=== PATIENT | female | born 1975 | race Caucasian/White ===

== ENCOUNTER 2022-04-07 12:13 | Emergency (ER) | payer OTHER, SELFPAY ==
[2022-04-07 12:26] VITALS: BP 89/54; PULSE 90; RESP 18; TEMP 36.8; O2SAT 100
[2022-04-07 12:53] LABS: Bilirubin Negative (Negative); Blood Trace-intact (Negative); Clarity Clear (Clear); Glucose Negative (Negative); Ketones 15 mg/dL (Negative); Leukocyte Esterase Negative (Negative); Nitrite Negative (Negative); Specific Gravity >= 1.030 (1.005-1.025); Urobilinogen 0.2 EU/dL (Up TO 0.2)
[2022-04-07 12:59] LABS: Bacteria Negative HPF (Negative); C & S Indicated? No; Casts Negative LPF (Negative); Crystals Negative HPF (Negative); Epithelial Cells Few HPF (Negative); Mucus Trace (Negative); RBC 0-2 HPF (0-2); WBC Negative HPF (0-5)
[2022-04-07] MEDS: Normal Saline 500 ML IV ×2 (13:14→14:15)
[2022-04-07] MEDS: HYDROmorphone 2 MG/ML VIAL 0.5 MG IVP ×2 (13:20→14:25)
[2022-04-07] MEDS: Ondansetron 4 MG/2 ML VIAL IVP (13:24)
[2022-04-07 13:35] LABS: Abs Immature Grans 0.07 10^3/uL (0.0-0.06); Absolute Basophil Count 0.04 10^3/uL (0.0-0.2); Absolute Eosinophil Count 0.15 10^3/uL (0.0-0.7); Absolute Lymphocyte Count 0.67 10^3/uL (1.2-3.4); Absolute Neutrophil Count 7.83 10^3/uL (1.2-6.7); Basophils % 0.4; Eosinophils % 1.6; HCT 38.9 % (36.0-46.0); HGB 12.8 g/dL (11.2-15.7); Immature Grans % 0.7; Lymphocytes % 7.1; MCH 30.5 pg (27.0-33.0); MCHC 32.9 % (32.0-36.0); MCV 93 fL (80-95); Monocytes % 7.4; Neutrophils % 82.8; RBC 4.19 10^6/uL (3.93-5.22); RDW 12.4 % (11.7-14.6); RDW-SD 42.5 fL; WBC 9.46 10^3/uL (4.4-10.8)
--- NOTE | 2022-04-07 13:41 | DI.CT_ITS ---
Exam(s) CT RENAL COLIC WO EXAM: CT RENAL COLIC WO CLINICAL HISTORY: flank pain with nephrostomy tube. TECHNIQUE: Imaging Protocol: Axial computed tomography images with coronal and sagittal reformatted images were created and reviewed. CONTRAST MATERIAL: Noncontrast COMPARISON: No exams were available for comparison FINDINGS: ABDOMEN: Lung Bases: Normal where visualized. Liver: Normal attenuation. No measurable mass. Gallbladder and biliary tract: No radiodense calculus or dilation. Pancreas: Normal density, no calcifications or inflammatory process. Spleen: Normal. Kidneys: There is a left-sided nephrostomy tube. There is moderate to severe left hydronephrosis. T here are 2 stones at the left ureteropelvic junction, the larger measuring 11 millimeters in length a nd the smaller measuring 5 millimeters. Multiple other smaller stones are noted throughout the left kidney. There is no perinephric collection. There are few tiny stones in the right kidney. There i s no right hydronephrosis. Adrenal glands: No masses seen. Abdominal Aorta: Abdominal portion non-dilated. Mild calcification. PELVIS: Bladder: Nearly empty. No gross wall thickening. No stones visible. Bowel: Large quantity of stool throughout the colon. No obstruction or bowel wall thickening. Peritoneal cavity: No ascites, collection or mesenteric inflammatory response. Bones: Within normal limits. IMPRESSION: Moderate to severe left hydronephrosis secondary to stones at the ureteropelvic junction. Left nephr ostomy tube is in place. Large quantity of fecal material. RADIATION DOSE DELIVERED: 719.55mGy.cm Total DLP DATA REPOSITORY: All CT scans at this facility are submitted to the National Radiology Data Registry (NRDR) Dose Index Registry (DIR) with the [employer] ([employer]). RADIATION OPTIMIZATION: All CT scans at this facility use at least one of these dose optimization te chniques: automated exposure control; mA and/or kV adjustment per patient size (includes targeted exa ms where dose is matched to clinical indication); or iterative reconstruction.
[2022-04-07 13:45] LABS: ALT 25 U/L (14-59); AST 18 U/L (15-37); Albumin 3.4 g/dL (3.4-5.0); Alkaline Phosphatase 87 U/L (46-116); BUN 20 mg/dL (7-18); Bilirubin, Total 0.3 mg/dL (0.2-1.0); CREATININE 1.3 mg/dL (0.55-1.02); Calcium 9.5 mg/dL (8.5-10.1); Chloride 105 mmol/L (98-107); Estimated GFR 43.72 (mL/min/1.73m2); Glucose 95 mg/dL (74-106); Potassium 3.9 mmol/L (3.5-5.1); Sodium 138 mmol/L (136-145); Total Protein 8.5 g/dL (6.4-8.2)
--- NOTE | 2022-04-07 14:12 | ED.GENADUL_ITS ---
Discharge Plan Disposition Patient Disposition: [facility] Condition: Stable Discharge Details Clinical Impression: Hydronephrosis, Nephrostomy status Primary Care Provider: [facility] Provider: Malena Pierce Home Meds and New Rx's Prescriptions: Continued venlafaxine 25 mg Tablet 25 mg PO DAILY topiramate 25 mg Tablet 25 mg PO DAILY levothyroxine 25 mcg Tablet 25 mcg PO DAILY cephalexin HCl 500 mg Tablet 500 mg PO DAILY ciprofloxacin HCl 250 mg Tablet 250 mg PO DAILY propranolol 10 mg Tablet 10 mg PO DAILY amoxicillin 250 mg Capsule 250 mg PO DAILY ondansetron 4 mg Tablet,Disintegrating 4 mg PO PRN PRN Discharge Data Discharge Date/Time-TO BE ENTERED AT DEPARTURE: 04/07/22 18:51 Medical Decision Making <Jerald Art NP - Last Filed: 04/08/22 13:54> Patient presenting to the emergency department for's severe left-sided flank pain. Patient reports that she has chronic history of left-sided kidney stone production and 3 months ago she ended up with a septic stone. She was admitted to [facility] with nephrostomy tube placement. At discharge she was placed on antibiotics but before her follow-up for definitive care of stone removal she became septic again and was readmitted to the hospital. She states that she was still on Cipro and amoxicillin but over the past 5 days has had worsening flank pain and for the past 2 days her nephrostomy tube has stopped draining. She does state that she was supposed to have follow-up on the but is refusing to return to [facility] due to significant concern over their care and feeling unsafe about procedure performed by them. Patient is extremely tender to the left flank and abdomen and is in significant amount of pain. Patient slightly hypotensive but vital signs otherwise stable patient is afebrile. We will plan to check labs and CT imaging pending results we will give fluid bolus and hydromorphone. Review of labs show no leukocytosis but slightly elevated neutrophils and decreased lymphocytes otherwise unremarkable CBC. CMP shows an anion gap of 13, BUN of 20, creatinine 1.3 with a GFR of 43. Total protein is 8.5 otherwise unremarkable CMP. Urinalysis shows high specific gravity, 15 urine ketones and trace blood otherwise negative for nitrates and leukocyte esterase with no WBCs and negative for bacteria. CT imaging shows moderate to severe left hydronephrosis with nephrostomy tube in place and several stones with obstruction noted in the left UVJ. Patient reassessed and continues to have discomfort. Will give additional fluid bolus and further narcotics along with 10 mg ketorolac to see if this helps better. Did contact [facility] and spoke with Dr. Lind with urology. He was able to develop plan of care for patient to have possible ED-ED transfer for nephrostomy tube replacement to help with patient's pain and to establish further definitive plan to treat her obstructing stones. Clear expectations were discussed with patient that majority of care would need to be taken care of on an outpatient basis and that she would need to follow-up as discussed by specialist. Patient is agreeable to this. Patient signed out to Malena ODELL pending confirmation of interventional radiology availability and report to be given to [facility] emergency department provider excepting patient. If interventional radiology is unavailable today plan to include admission of patient for pain control and monitoring with transfer to tertiary care center when IR is available for nephrostomy tube change. Imaging Data Radiologic Study: Attestation: I personally reviewed and interpreted this imaging study as follows: Imaging: CT Scan Radiologist's impression: FINDINGS: ABDOMEN: Lung Bases: Normal where visualized. Liver: Normal attenuation. No measurable mass. Gallbladder and biliary tract: No radiodense calculus or dilation. Pancreas: Normal density, no calcifications or inflammatory process. Spleen: Normal. Kidneys: There is a left-sided nephrostomy tube. There is moderate to severe left hydronephrosis. There are 2 stones at the left ureteropelvic junction, the larger measuring 11 millimeters in length and the smaller measuring 5 millimeters. Multiple other smaller stones are noted throughout the left kidney. There is no perinephric collection. There are few tiny stones in the right kidney. There is no right hydronephrosis. Adrenal glands: No masses seen. Abdominal Aorta: Abdominal portion non-dilated. Mild calcification. PELVIS: Bladder: Nearly empty. No gross wall thickening. No stones visible. Bowel: Large quantity of stool throughout the colon. No obstruction or bowel wall thickening. Peritoneal cavity: No ascites, collection or mesenteric inflammatory response. Bones: Within normal limits. IMPRESSION: Moderate to severe left hydronephrosis secondary to stones at the ureteropelvic junction. Left nephrostomy tube is in place. Large quantity of fecal material. <JOSE R Conti - Last Filed: 04/07/22 18:06> Patient presenting to the emergency department for's severe left-sided flank pain. Patient reports that she has chronic history of left-sided kidney stone production and 3 months ago she ended up with a septic stone. She was admitted to [facility] with nephrostomy tube placement. At discharge she was placed on antibiotics but before her follow-up for definitive care of stone removal she became septic again and was readmitted to the hospital. She states that she was still on Cipro and amoxicillin but over the past 5 days has had worsening flank pain and for the past 2 days her nephrostomy tube has stopped draining. She does state that she was supposed to have follow-up on the but is refusing to return to [facility] due to significant concern over their care and feeling unsafe about procedure performed by them. Patient is extremely tender to the left flank and abdomen and is in significant amount of pain. Patient slightly hypotensive but vital signs otherwise stable patient is afebrile. We will plan to check labs and CT imaging pending results we will give fluid bolus and hydromorphone. Review of labs show no leukocytosis but slightly elevated neutrophils and decreased lymphocytes otherwise unremarkable CBC. CMP shows an anion gap of 13, BUN of 20, creatinine 1.3 with a GFR of 43. Total protein is 8.5 otherwise unremarkable CMP. Urinalysis shows high specific gravity, 15 urine ketones and trace blood otherwise negative for nitrates and leukocyte esterase with no WBCs and negative for bacteria. CT imaging shows moderate to severe left hydronephrosis with nephrostomy tube in place and several stones with obstruction noted in the left UVJ. Patient reassessed and continues to have discomfort. Will give additional fluid bolus and further narcotics along with 10 mg ketorolac to see if this helps better. Did contact [facility] and spoke with Dr. Lind with urology. He was able to develop plan of care for patient to have possible ED-ED transfer for nephrostomy tube replacement to help with patient's pain and to establish further definitive plan to treat her obstructing stones. Clear expectations were discussed with patient that majority of care would need to be taken care of on an outpatient basis and that she would need to follow-up as discussed by specialist. Patient is agreeable to this. Patient signed out to Malena ODELL pending confirmation of interventional radiology availability and report to be given to [facility] emergency department provider excepting patient. If interventional radiology is unavailable today plan to include admission of patient for pain control and monitoring with transfer to tertiary care center when IR is available for nephrostomy tube change. LB: accepted in sign out from Slava [facility] accepted pt to ER for IR replacement of nephrostomy tube DR rueda has accepted pt and stable at time of reassessment for transfer via BLS to [facility] HPI <Jerald Art MORTAR MAN - Last Filed: 04/08/22 13:54> General Mode of arrival: wheelchair . Date/Time Provider Initiated Documentation: 04/07/22 12:35 . Limitations to Documentation: no limitations . Information obtained by: patient and RN notes reviewed . History of Present Illness 47 year old F presents to the emergency department with the chief complaint of severe flank pain, described as moderate, with intensity rated at >10. Quality is described as aching and sharp, and is localized to the back. Patient abdomen. Patient started experiencing this day(s) (2) and it has been constant. No relieving factors improve symptom(s), Patient notes loss of appetite, malaise and nausea/vomiting. Patient did receive the following treatments prior to arrival, NSAID Related Data Home Medications Medication Instructions Recorded Confirmed amoxicillin 250 mg capsule 250 mg PO DAILY 04/07/22 04/07/22 cephalexin HCl 500 mg tablet 500 mg PO DAILY 04/07/22 04/07/22 ciprofloxacin HCl 250 mg tablet 250 mg PO DAILY 04/07/22 04/07/22 levothyroxine 25 mcg tablet 25 mcg PO DAILY 04/07/22 04/07/22 ondansetron 4 mg disintegrating 4 mg PO PRN PRN 04/07/22 04/07/22 tablet propranolol 10 mg tablet 10 mg PO DAILY 04/07/22 04/07/22 topiramate 25 mg tablet 25 mg PO DAILY 04/07/22 04/07/22 venlafaxine 25 mg tablet 25 mg PO DAILY 04/07/22 04/07/22 Allergies Allergy/AdvReac Type Severity Reaction Status Date / Time Sulfa (Sulfonamide Allergy Intermediate Skin Rash Unverified 04/07/22 12:52 Antibiotics) sulfamethoxazole Allergy Intermediate Skin Rash Unverified 04/07/22 12:52 [From Bactrim] trimethoprim [From Bactrim] Allergy Intermediate Skin Rash Unverified 04/07/22 12:52 codeine AdvReac Intermediate Itching Unverified 04/07/22 12:52 General Stated Complaint: FlankPain LEO: 3 Review of Systems <Jerald Art NP - Last Filed: 04/08/22 13:54> Constitutional Constitutional: Denies body ache(s), Denies chills, Denies fever(s), Reports malaise, Reports poor appetite and Denies weakness Cardiovascular Cardiovascular: Denies chest pain Respiratory Respiratory: Reports system reviewed and no additional complaints, except as documented Gastrointestinal Gastrointestinal: Reports abdominal pain, Reports nausea and Denies vomiting Genitourinary Genitourinary: Reports as per HPI, Denies hematuria, Reports dysuria, Denies pelvic pain, Reports flank pain and Reports urinary urgency Musculoskeletal Musculoskeletal: Reports back pain Integumentary/Breasts Skin/Breast: Denies erythema and Denies rash Neurologic Neurologic: Denies confusion and Denies weakness Psychiatric Psychiatric: Denies confusion PFSH <Jerald Art NP - Last Filed: 04/08/22 13:54> All Active Problems Hydronephrosis (Acute) Nephrostomy status (Acute) Social History Smoking/Tobacco Use Status: Never Smoking risk assessment performed?: Yes Alcohol Intake: never Drug use: Never Substance use type: does not use Do you feel safe at home: Yes Do you feel safe in your relationship?: Yes Exam <Jerald Art NP - Last Filed: 04/08/22 13:54> Const General: cooperative, acute distress severe; not respiratory and ill appearing acutely Nutritional Appearance: average body habitus Orientation: alert, awake and oriented x3 Limitations: mental status not altered Resp Effort & Inspection: normal respiratory effort and able to speak in complete sentences Auscultation: clear to auscultation bilaterally Cardio Rate: regular rate Rhythm: regular rhythm Heart Sounds: S1 normal and S2 normal GI Palpation: soft, no hepatosplenomegaly, not firm, no guarding, no masses, no pulsatile masses, not rigid, no splenomegaly and tender in the LUQ Auscultation: normal bowel sounds General: CVA tenderness on the left Back/Spine/Pelvis Back: CVA tenderness and other (Nephrostomy tube no infection or drainage noted) Neuro General: patient alert, patient awake, patient oriented x3, gait normal and moves all extremities Course <Jerald Art NP - Last Filed: 04/08/22 13:54> Vital Signs Vital signs: Vital Signs Temperature 36.8 C 04/07/22 12:26 Pulse 90 04/07/22 12:26 Respiratory Rate 18 04/07/22 12:26 Blood Pressure 89/54 L 04/07/22 12:26 Pulse Oximetry 100 04/07/22 12:26 Temperature 36.8 C 04/07/22 12:26 Pulse 90 04/07/22 12:26 Respiratory Rate 18 04/07/22 12:26 Respiratory Effort Non-Labored 04/07/22 12:48 Blood Pressure 89/54 L 04/07/22 12:26 Blood Pressure Position Supine 04/07/22 12:26 Pulse Oximetry 100 04/07/22 12:26 Oxygen Delivery Method Room Air 04/07/22 12:26 Oxygen Flow Rate 0 04/07/22 12:26 Pain Level 10 04/07/22 13:20 Lab/Test Results Lab/Test Results: Laboratory Tests Range/Units 04/07/22 04/07/22 12:40 13:08 Sodium (136-145) mmol/L 138 Potassium (3.5-5.1) mmol/L 3.9 Chloride (98-107) mmol/L 105 Carbon Dioxide (21.0-32.0) mmol/L 20.0 L Anion Gap (3-11) mmol/L 13.0 H BUN (7-18) mg/dL 20 H Creatinine (0.55-1.02) mg/dL 1.3 H Estimated GFR/1.73 m2 (mL/min/1.73m2) 43.72 Glucose (74-106) mg/dL 95 Calcium (8.5-10.1) mg/dL 9.5 Total Bilirubin (0.2-1.0) mg/dL 0.3 AST (15-37) U/L 18 ALT (14-59) U/L 25 Alkaline Phosphatase (46-116) U/L 87 Total Protein (6.4-8.2) g/dL 8.5 H Albumin (3.4-5.0) g/dL 3.4 Urine Color (Yellow) Yellow Urine Clarity (Clear) Clear Urine pH (5-8) 6.0 Ur Specific Jones (1.005-1.025) >= 1.030 H Urine Protein (Negative) mg/dL Negative Urine Ketones (Negative) mg/dL 15 H Urine Blood (Negative) Trace-intact H Urine Nitrite (Negative) Negative Urine Bilirubin (Negative) Negative Urine Urobilinogen (Up TO 0.2) EU/dL 0.2 Ur Leukocyte Esterase (Negative) Negative Urine RBC (0-2) HPF 0-2 Urine WBC (0-5) HPF Negative Ur Epithelial Cells (Negative) HPF Few Urine Crystals (Negative) HPF Negative Urine Bacteria (Negative) HPF Negative Urine Casts (Negative) LPF Negative Urine Mucus (Negative) Trace Ur Culture Indicated? No Urine Glucose (Negative) mg/dL Negative Sign Out <Jerald Art NP - Last Filed: 04/08/22 13:54> Sign Out Data: Sign Out Comment: pending confirmation of interventional radiology availability and report to be given to [facility] emergency department provider excepting patient. If interventional radiology is unavailable today plan to include admission of patient for pain control and monitoring with transfer to tertiary care center when IR is available for nephrostomy tube change. Last updated by Jerald Art NP at 04/07/22 16:05
[2022-04-07] MEDS: Ketorolac 15 MG/ML VIAL 10 MG IVP (14:25)
[2022-04-07 15:30] VITALS: BP 111/62; PULSE 67; RESP 16; TEMP 36.6; O2SAT 100
[2022-04-07] MEDS: HYDROmorphone 2 MG/ML VIAL 1 MG IVP (17:51)
[2022-04-07] MEDS: Prochlorperazine 10 MG/2 ML VIAL 5 MG IVP (18:43)
== END 2022-04-07 18:51 | disposition short-term general hospital (02) ==
PROVIDERS: Nurse Practitioner Family; Emergency Provider Physician Assistant
DX: N13.2 Hydronephrosis with renal and ureteral calculous obstruction (principal); Z93.6 Other artificial openings of urinary tract status
CPT/HCPCS: 36415; 80053; 96361; 96374; 96375; 96376; 99285; 74176; 81003; 81015; 85025; 99284; J0780; J1885; J2405